=== PATIENT | female | born 1950 | race Two or more races ===

== ENCOUNTER 2022-09-08 06:02 | Inpatient (IN) | payer OTHER ==
[2022-09-01 17:14] VITALS: BMI 24.0
[2022-09-08] MEDS ORDERED: CEFAZOLIN 2 GM in DEXTROSE 5%-WATER - 50 ML IVPB ONE (07:00)
[2022-09-08] MEDS ORDERED: ONDANSETRON 4 MG/2 ML VIAL IVPUSH PRN (07:08)
[2022-09-08] MEDS ORDERED: oxyCODONE HCL 5 MG TABLET PO PRN (07:08)
[2022-09-08] MEDS ORDERED: MIDAZOLAM HCL 2 MG/2 ML SINGLE DOSE VIAL ONE (07:19)
[2022-09-08] MEDS ORDERED: PROPOFOL 40 ML ONE (07:19)
[2022-09-08] MEDS ORDERED: BUPIVACAINE HCL/PF 0.5% (5MG/ML) 10 ML VIAL ONE ×2 (07:50→07:57)
[2022-09-08] MEDS ORDERED: ACETAMINOPHEN INJECTION 100 ML IVPB ONE (07:50)
[2022-09-08] MEDS ORDERED: BUPIVACAINE LIPOSOME/PF (EXPAREL) 266 MG/20 ML VIAL ONE (07:50)
[2022-09-08] MEDS ORDERED: VANCOMYCIN 1,000 MG VIAL (RESTRICTED TO ID ONLY) ONE (07:51)
[2022-09-08] MEDS ORDERED: TRANEXAMIC ACID 1000 MG/10 ML VIAL IVPUSH ONE (08:00)
[2022-09-08] MEDS ORDERED: THROMBIN (BOVINE) 5,000 UNIT VIAL TP ONE (08:42)
[2022-09-08] MEDS ORDERED: ceFAZolin SODIUM 1 GM VIAL ONE (09:04)
[2022-09-08] MEDS ORDERED: ENALAPRILAT DIHYDRATE 2.5 MG/2 ML VIAL IVPB ONE (09:20)
[2022-09-08] MEDS ORDERED: BUPIVICAINE 0.25%/MORPH PF/KETOROLAC - 51ML DISP.SYRINGE IA ONE ×2 (10:02→10:17)
[2022-09-08] MEDS ORDERED: VANCOMYCIN 1,000 MG VIAL (RESTRICTED TO ID ONLY) IVPB ONE (10:07)
[2022-09-08] MEDS ORDERED: MAGNESIUM HYDROX 2400MG/30ML ORAL SUSPENSION 30 ML CUP PO PRN (11:00)
[2022-09-08] MEDS ORDERED: MAG HYDROX/AL HYDROX/SIMETH 30 ML UNIT-DOSE CUP PO PRN (11:00)
[2022-09-08] MEDS: ONDANSETRON 4 MG/2 ML VIAL IVPUSH PRN ×2 (12:02→17:10)
[2022-09-08] MEDS: LACTATED RINGERS SOLUTION 1,000 ML IV SCH ×2 (13:34→22:10)
[2022-09-08] MEDS: INSULIN SLIDING SCALE (NOVOLOG) 1 VIAL SQ SCH ×2 (16:18→22:42)
[2022-09-08] MEDS: CEFAZOLIN SODIUM 2 GM in DEXTROSE 5%-WATER 100 ML IVPB SCH (17:06)
[2022-09-08] MEDS: ACETAMINOPHEN 325 MG TABLET (FP) PO PRN (19:01)
[2022-09-08] MEDS: ACETAMINOPHEN 1000 MG/100 ML BAG IVPB SCH (20:54)
[2022-09-08] MEDS ORDERED: ATORVASTATIN CA 40 MG TABLET (FP) PO SCH (22:00)
[2022-09-08] MEDS: ASPIRIN 81 MG CHEWABLE TABLETS PO SCH (22:36)
[2022-09-08] MEDS: SENNOSIDES/DOCUSATE COMBO (SENNA PLUS) TABLET (UD) PO SCH (22:36)
[2022-09-09] MEDS: CEFAZOLIN SODIUM 2 GM in DEXTROSE 5%-WATER 100 ML IVPB SCH ×2 (00:49→08:31)
[2022-09-09] MEDS: ACETAMINOPHEN 1000 MG/100 ML BAG IVPB SCH ×2 (04:07→12:16)
[2022-09-09] MEDS: INSULIN SLIDING SCALE (NOVOLOG) 1 VIAL SQ SCH ×3 (06:39→18:45)
[2022-09-09] MEDS: oxyCODONE HCL 5 MG TABLET PO PRN ×2 (07:27→14:10)
[2022-09-09] MEDS: LACTATED RINGERS SOLUTION 1,000 ML IV SCH (07:30)
[2022-09-09 08:30] LABS: HEMATOCRIT 36.7 % (32.4-45.2); MCH 29.5 pg (25.7-33.7); MCHC 32.8 g/dl (32.0-36.0); MEAN CELL VOLUME 89.9 fl (80-96); MEAN PLT VOLUME 11.1 fl (7.5-11.1); PLATELET COUNT 163.2 10^3/uL (134-434); RBC 4.08 10^6/uL (3.60-5.2); RDW 14.9 % (11.6-15.6); WHITE BLOOD COUNT 10.3 10^3/uL (4.0-10.8)
[2022-09-09 08:41] LABS: BLOOD UREA NITROGEN 20.6 mg/dl (7-18); CALCIUM 8.6 mg/dl (8.5-10.1); CREATININE 1.2 mg/dl (0.6-1.3); POTASSIUM 4.3 mmol/L (3.5-5.1)
[2022-09-09] MEDS ORDERED: VANCOMYCIN 750 MG in DEXTROSE 5%-WATER - 250 ML IVPB ONE (09:00)
[2022-09-09] MEDS: ACETAMINOPHEN 325 MG TABLET (FP) PO PRN (09:16)
[2022-09-09] MEDS: SENNOSIDES/DOCUSATE COMBO (SENNA PLUS) TABLET (UD) PO SCH (09:16)
[2022-09-09] MEDS: ASPIRIN 81 MG CHEWABLE TABLETS PO SCH (09:17)
[2022-09-09 09:45] VITALS: PULSE 54
[2022-09-09] MEDS ORDERED: SUCRALFATE 1 GM TABLET (FP) PO SCH (10:00)
[2022-09-09] MEDS ORDERED: FENOFIBRATE 40 MG PO SCH (10:00)
[2022-09-09] MEDS ORDERED: MULTIVITAMINS (DAILY MVI) TABLET (FP) PO SCH (10:00)
[2022-09-09] MEDS ORDERED: FENOFIBRIC ACID 45 MG CAP PO SCH (10:00)
[2022-09-09] MEDS ORDERED: LOSARTAN POTASSIUM 50 MG TABLET PO SCH (10:00)
[2022-09-09] MEDS ORDERED: CANDESARTAN CILEXETIL 16 MG PO SCH (10:00)
[2022-09-09] MEDS ORDERED: HYDROCHLOROTHIAZIDE 50 MG TABLET PO SCH (10:00)
[2022-09-09] MEDS ORDERED: PANTOPRAZOLE 40 MG TABLET PO SCH (10:00)
[2022-09-09] MEDS ORDERED: ALLOPURINOL 100 MG TABLET (FP) PO SCH (10:00)
[2022-09-09 14:17] VITALS: BP 137/47; RESP 18; TEMP 98.5
== END 2022-09-09 18:00 | disposition home or self-care (01) | DRG 470 ==
LOC: FM/S 06:02
PROVIDERS: ADMIT Internal Medicine; ATTEND Internal Medicine
PROC: 0SRC0JZ Replacement of Right Knee Joint with Synthetic Substitute, Open Approach (ICD-10-PCS; principal; 2022-09-07)
DX: M17.11 Unilateral primary osteoarthritis, right knee (principal); E11.9 Type 2 diabetes mellitus without complications; I10 Essential (primary) hypertension; K21.9 Gastro-esophageal reflux disease without esophagitis; E78.5 Hyperlipidemia, unspecified
CPT/HCPCS: 36415; 73560-TC-RT-FY; 80048; 82962; 83036; 85027; 88305-TC; 88311-TC; 94760; 97010-GP; 97116-GP; 97162-GP; C1776

== ENCOUNTER 2022-12-12 06:11 | Day surgery (SDC) | payer OTHER ==
[2022-12-08 14:07] VITALS: BMI 24.0
[2022-12-12] MEDS ORDERED: PROPOFOL 20 ML ONE (07:26)
[2022-12-12] MEDS ORDERED: SUCCINYLCHOLINE CHLORIDE 200 MG/10 ML SYRINGE ONE (07:26)
[2022-12-12] MEDS ORDERED: DEXAMETHASONE SOD PHOSPHATE 4 MG/1 ML VIAL ONE (07:29)
[2022-12-12] MEDS ORDERED: ONDANSETRON 4 MG/2 ML VIAL ONE ×2 (07:29→08:04)
[2022-12-12] MEDS ORDERED: oxyCODONE HCL 5 MG TABLET PO PRN (07:53)
[2022-12-12] MEDS ORDERED: ONDANSETRON 4 MG/2 ML VIAL IVPUSH PRN (07:53)
[2022-12-12] MEDS ORDERED: LACTATED RINGERS SOLUTION 1,000 ML IV SCH (08:00)
[2022-12-12] MEDS ORDERED: ACETAMINOPHEN 325 MG TABLET (FP) PO ONE (08:00)
[2022-12-12] MEDS ORDERED: ACETAMINOPHEN 325 MG TABLET (FP) ONE (08:03)
[2022-12-12] MEDS ORDERED: oxyCODONE HCL 5 MG TABLET ONE (08:26)
[2022-12-12 09:02] VITALS: RESP 16; TEMP 98.2
[2022-12-12 09:04] VITALS: BP 140/55; PULSE 58
== END 2022-12-12 09:05 | disposition home or self-care (01) ==
LOC: FASU 06:11
PROVIDERS: ATTEND Orthopaedic Surgery Sports Medicine
PROC: 0SSCXZZ Reposition Right Knee Joint, External Approach (ICD-10-PCS; principal; 2022-12-12 07:36)
DX: M24.661 Ankylosis, right knee (principal)
CPT/HCPCS: 82962; 94760